=== PATIENT | female | born 1930 | race Caucasian/White ===

== ENCOUNTER → 2016-11-04 | Outpatient (CLI) | payer MEDICARE ==
[~2016-11-04] MED LIST: ALEVE220 M1 PO; ASPIRIN PO; BLOOD PRESSURE MED PO; CLOPIDOGREL PO; CO Q10 PO; D3; EYE DROPS; FLAX SEED OIL1000 M1 PO; FLAXSEED OIL PO; KEFLEX500 MG PO; LISINOPRIL PO; METOPROLOL PO; MULTI-DAY1 TAB PO; OMEGA 3 FISH OI1 CAP PO; OMEGA 3 PO; PRAVASTATIN PO; VIT D PO; [UNRECOGNIZED DRUG - MIXTURE]
[2016-11-04 09:12] LABS: ALBUMIN SERUM 3.6 g/dL (3.5-5.0); BILIRUBIN,TOTAL 0.3 mg/dL (0.2-2.0); BUN/CREATININE RATIO 21.11; CALCIUM SERUM 9.1 mg/dL (8.4-10.2); CREATININE SERUM 0.9 mg/dL (0.6-1.4); GLOM FILT RATE Estimated 58.8 mL/min (>60); POTASSIUM 3.9 mmol/L (3.5-5.1); PROTEIN TOTAL SERUM 7.9 g/dL (6.0-8.3)
== END | disposition home or self-care (01) ==
LOC: SLAB 08:37
DX: I25.10 Atherosclerotic heart disease of native coronary artery without angina pectoris (principal)
CPT/HCPCS: 36415; 80053; 80061